=== PATIENT | female | born 1990 | race Caucasian/White ===

== ENCOUNTER 2023-03-24 08:06 | Outpatient (CLI) | payer BC, SELFPAY ==
--- NOTE | ~2023-03-24 | US_ITS ---
US OB /maternal detail DATE: 03/24/2023 09:50 INDICATION: screening TECHNIQUE: Real-time imaging and Doppler analysis COMPARISON: None FINDINGS: Live li intrauterine gestation, fetus in longitudinal lie, breech presentation, with heart rate of 144 bpm. Posterior placenta. Subjectively normal amount of amniotic fluid. cerebral ventricles and cerebellum appear normal. Normal nuchal fold. The spine appears i ntact. 4 chamber heart with normal ventricular outflow tracts. Three-vessel umbilical cord with normal insertion at abdominal wall. Normal kidneys. Fluid is demonstrated in the s tomach and urinary bladder. 4 extremities are demonstrated. Biparietal diameter averages 4.48 cm, consistent with 19 weeks 4 days estimated gestational age Head circumference 16.26 cm; 19 weeks 0 days Abdominal circumference 14.44 cm; 19 weeks 5 days Femur length 3.02 cm; 19 weeks 2 days Composite age by Hadlock formula is 19 weeks 3 days +/- 1 week 3 days with JANINE of 08/15/2023 compared to 08/17/2023 by LMP. Estimated weight is 297 +/- 44.6 g. Head circumference/abdominal refrigeration manager was 1.13, within normal range of 1.08-1.26 Femur length/head circumference 18.59, within normal range of 16.40-18.94. IMPRESSION: Breech presentation Estimated gestational age of 19 weeks 3 days +/- 1 week 3 days; JANINE: 08/15/2023 Reviewed, dictated and finalized at [facility]. Reviewed, dictated and finalized at [facility].
== END 2023-03-24 08:07 | disposition home or self-care (01) ==
LOC: ANHIMG 08:12
PROVIDERS: Visit Provider Advanced Practice Midwife
DX: Z36.9 Encounter for antenatal screening, unspecified (principal); Z3A.19 19 weeks gestation of pregnancy
CPT/HCPCS: 76805